=== PATIENT | male | born 1995 | race Caucasian/White ===

== ENCOUNTER 2016-12-18 07:12 | Day surgery (SDC) | payer OTHER ==
[2016-12-18] MEDS ORDERED: ONDANSETRON HCL INJ/PF 4 MG/2 ML SDV ONE (08:18)
[2016-12-18] MEDS ORDERED: FENTANYL CITRATE INJ/PF 250 MCG/5 ML AMPULE ONE (08:18)
[2016-12-18] MEDS ORDERED: ACETAMINOPHEN 100 ML IV ONE (08:18)
[2016-12-18] MEDS ORDERED: MIDAZOLAM 2 MG/2 ML INJ ONE (08:18)
[2016-12-18] MEDS ORDERED: DEXAMETHASONE SOD PHOS INJ 10 MG/1 ML VIAL ONE (08:18)
[2016-12-18] MEDS ORDERED: SUCCINYLCHOLINE CHLORIDE INJ 200 MG/10 ML VIAL ONE (08:19)
[2016-12-18] MEDS ORDERED: PROPOFOL INJ 200 MG/20 ML VIAL IV ONE (08:19)
[2016-12-18] MEDS ORDERED: IBUPROFEN SUSP 100 MG/5 ML ORAL SYRINGE ONE (09:39)
--- NOTE | 2016-12-18 10:44 | OPERATIVE REPORT E ---
Operative Report NAME: REINIER GIPSON : 1995 AGE: 21Y DATE OF SURGERY: 12/18/2016 ROOM: PREOPERATIVE DIAGNOSES: 1. Tonsillar hypertrophy. 2. Chronic tonsillitis. 3. Tonsillith formation. POSTOPERATIVE DIAGNOSES: 1. Tonsillar hypertrophy. 2. Chronic tonsillitis. 3. Tonsillith formation. OPERATION PERFORMED: Tonsillectomy. SURGEON: ZONIA MARRERO M.D. PATIENT SERVICE ASSOCIATE: None. ANESTHESIA: General, Dr. 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 He now comes in for definitive tonsillectomy. PROCEDURE: The patient was seen and identified in the preoperative holding area. A discussion then took place with his roommate who is going to be quarterbacking the postoperative care. All questions were answered. The patient was then taken back to the operating room, placed in supine position. General anesthesia was induced and an oral endotracheal tube was placed. The patient was appropriately positioned into the [place] position and draped. A short time out then took place and all issues relating to the patient's identity, his positioning on the table, and the procedure to be performed together with the risks attendant thereto were discussed and there were no matters arising. The Celi-Rome gag was then inserted with care and expanded. The anatomy of the lips, mouth, tongue, teeth, palate, and pharynx was inspected and found to be normal. Digital palpation was made of the soft palate and no submucous cleft was identified. Mirror examination was made of the nasopharynx and no abnormality was noted. Each tonsil was then grasped in turn with a curved tenaculum and was medialized. An incision was made using the spatula-tip electrocautery at 25 on cutting current, placing the incision well behind the anterior pillar. The peritonsillar space was gained. Dissection was largely done bluntly using the spatula-tip electrocautery, coagulating feeding blood vessels as they came into view at 55 on coagulating current. Spatula-tip electrocautery set at 55 on coagulating current was utilized to transect the inferior pole on each side and in this fashion, the tonsils were resected in an essentially bloodless fashion. Suction electrocautery was utilized for touch up bleeding points. The Celi-Rmoe gag was then collapsed for a full minute and then re-expanded again. Hemostasis was noted to be accurate. The airways and nasopharynx were then suctioned, no bleeding could be seen, and therefore the [place] gag was taken out. The patient was extubated, light, and transferred to PACU in good condition having tolerated the procedure well. Estimated blood loss was 10 mL. Replacement was with 700 mL of lactated Ringer's. There were no complications or untoward events. DICTATING PHYSICIAN: ZONIA MARRERO M.D. [id number] PHY#: [id number] ID: [id number] JOB#: [id number] ACCT: [id number] cc:ZONIA MARRERO M.D. >
== END 2016-12-18 10:22 | disposition home or self-care (01) ==
LOC: SC 07:12
PROVIDERS: ATTEND Otolaryngology
PROC: 0CTPXZZ Resection of Tonsils, External Approach (ICD-10-PCS; principal; 2016-12-18 08:15)
DX: J35.1 Hypertrophy of tonsils (principal); J35.8 Other chronic diseases of tonsils and adenoids; F17.210 Nicotine dependence, cigarettes, uncomplicated
CPT/HCPCS: 88304 ×2; 42826; J2250; J3010; J0330; J2405; J2704; J1100; J0131; 170